=== PATIENT | male | born 1930 | race Caucasian/White ===

== ENCOUNTER → 2017-12-23 | Outpatient (CLI) | payer MEDICARE, MEDICAID ==
[2017-12-23 11:56] LABS: CHLORIDE 103 mEq/L (98-107)
[2017-12-23 12:09] LABS: TOTAL IRON BINDING CAPACITY 324 ug/dL (250-450)
[2017-12-23 12:23] LABS: FERRITIN 36 ng/mL (22-322)
[2017-12-23 12:36] LABS: VITAMIN B12 SERUM 568 pg/mL (211-911)
[2017-12-23 12:43] LABS: FOLIC ACID (FOLATE) SERUM > 20.00 ng/mL (>5.38)
[2017-12-24 06:20] LABS: PROSTATE SPECIFIC AG TOTAL 0.5 ng/mL (0.0-4.0); PSA FREE 0.28 ng/mL
== END | disposition home or self-care (01) ==
LOC: LAB 10:32
PROVIDERS: ATTEND Internal Medicine Nephrology
DX: R10.9 Unspecified abdominal pain (principal); I10 Essential (primary) hypertension; N40.0 Benign prostatic hyperplasia without lower urinary tract symptoms; R79.89 Other specified abnormal findings of blood chemistry
CPT/HCPCS: 36415; 80053; 82607; 82728; 82746; 83540; 83550; 84153; 84154

== ENCOUNTER → 2017-12-26 | Outpatient (CLI) | payer MEDICARE, MEDICAID ==
[2017-12-26 12:11] LABS: CLARITY URINE CLEAR (CLEAR); COLOR URINE DARK YELLOW (YELLOW); KETONES URINE TRACE (NEGATIVE); LEUKOCYTE ESTERASE URINE NEGATIVE (NEGATIVE); NITRITE URINE NEGATIVE (NEGATIVE); OCCULT BLOOD URINE NEGATIVE (NEGATIVE); PH URINE 5.5 (4.5-8.0); PROTEIN URINE NEGATIVE (NEGATIVE)
== END | disposition home or self-care (01) ==
LOC: LAB 10:49
PROVIDERS: ATTEND Internal Medicine Nephrology
DX: N39.0 Urinary tract infection, site not specified (principal); I10 Essential (primary) hypertension
CPT/HCPCS: 81003; 87086

== ENCOUNTER → 2018-08-13 | Outpatient (CLI) | payer MEDICARE, MEDICAID ==
[2018-08-13 10:15] LABS: CHLORIDE 100 mEq/L (98-107)
== END | disposition home or self-care (01) ==
LOC: LAB 09:32
PROVIDERS: ATTEND Internal Medicine Nephrology
DX: I12.9 Hypertensive chronic kidney disease with stage 1 through stage 4 chronic kidney disease, or unspecified chronic kidney disease (principal); N18.3 Chronic kidney disease, stage 3 (moderate); Z85.46 Personal history of malignant neoplasm of prostate
CPT/HCPCS: 36415; 80048; 84153; G0103

== ENCOUNTER → 2020-04-19 | Outpatient (CLI) | payer MEDICARE, MEDICAID ==
[~2020-04-19] MED LIST: AMLO2.5T45 PO; ASPI-1497 PO; BENA10TA74 PO; CARV6.2548 PO; CHOL200077 PO; CLOP75TA33 PO; DOXA1TAB2 PO; FINA1TAB18 PO; MAGN400C PO; MULT1TAB63 PO
== END | disposition home or self-care (01) ==
LOC: LAB 12:29
PROVIDERS: ATTEND Ophthalmology
DX: Z20.828 Contact with and (suspected) exposure to other viral communicable diseases (principal)
CPT/HCPCS: C9803; U0003

== ENCOUNTER 2020-04-24 06:19 | Day surgery (SDC) | payer MEDICARE, MEDICAID ==
[~2020-04-24] VITALS: Ht 160 cm; Wt 59.9 kg
[~2020-04-24 06:19] MED LIST changes: -AMLO2.5T45 PO; -ASPI-1497 PO; -BENA10TA74 PO; -CARV6.2548 PO; -CHOL200077 PO; -CLOP75TA33 PO; -DOXA1TAB2 PO; -FINA1TAB18 PO; -MAGN400C PO; -MULT1TAB63 PO; +NEOMYCIN/POLYMYXN B/GRAMICIDIN OPHTH DROPS 10ML RIGHTEYE SCH; +PHENYLEPHRINE 2.5% OPHTH 15 DROP/ML BOTTLE RIGHTEYE NR; +TROPICAMIDE 1% OPHTH DROPS 15ML RIGHTEYE NR
[2020-04-24] MEDS ORDERED: BENA10TA74 PO (06:42)
[2020-04-24] MEDS ORDERED: CLOP75TA33 PO (06:42)
[2020-04-24] MEDS ORDERED: ASPI-1497 PO (06:42)
[2020-04-24] MEDS ORDERED: AMLO2.5T45 PO (06:42)
[2020-04-24] MEDS ORDERED: MAGN400C PO (06:42)
[2020-04-24] MEDS ORDERED: MULT1TAB63 PO (06:42)
[2020-04-24] MEDS ORDERED: DOXA1TAB2 PO (06:42)
[2020-04-24] MEDS ORDERED: FINA1TAB18 PO (06:42)
[2020-04-24] MEDS ORDERED: CARV6.2548 PO (06:42)
[2020-04-24] MEDS ORDERED: ACETYLCHOLINE CHLORIDE INTRAOCULAR SOLUTION 1:100 ELECTROLYTE DILUENT IO ONE (07:00)
[2020-04-24] MEDS ORDERED: PREDNISOLONE ACETATE 1% OPHTH DROPS 5ML ONE (07:00)
[2020-04-24] MEDS ORDERED: PHENYLEPHRINE HCL 2.5% OPHTH DROPS 2ML ONE (07:00)
[2020-04-24] MEDS ORDERED: TROPICAMIDE 1% OPHTH DROPS 15ML ONE (07:00)
[2020-04-24] MEDS ORDERED: LACTATED RINGERS 1,000 ML IV SCH (07:00)
[2020-04-24] MEDS ORDERED: TETRACAINE 0.5% OPHTH DROPS 4ML ONE (07:00)
[2020-04-24] MEDS ORDERED: BALANCED SALT IRRIG SOLN 15ML ONE (07:00)
[2020-04-24 07:19] LABS: CHLORIDE 100 mEq/L (98-107)
[2020-04-24] MEDS ORDERED: HYALURONATE SODIUM 10 MG/ML 0.55ML SYRINGE IO ONE (07:22)
[2020-04-24] MEDS ORDERED: TOBRAMYCIN/DEXAMETH 0.1/0.3% OPHTH SUSP 2.5ML ONE (07:22)
[2020-04-24] MEDS ORDERED: HOMATROPINE HBR 5% OPHTH 5ML ONE (07:23)
[2020-04-24] MEDS ORDERED: METHYLPREDNISOLONE SOD SUCC 40 MG/ML VIAL ONE (07:23)
[2020-04-24 07:24] LABS: BASOPHILS % 0.3 % (0.0-2.0); EOSINOPHILS % 1.3 % (0.0-5.0); HEMATOCRIT. 35.1 % (42.0-52.0); LYMPHOCYTES % 25.7 % (20.0-50.0); MEAN CORPUSCULAR HEMOGLOBIN 32.8 pg (28.0-32.0); MEAN CORPUSCULAR VOLUME 96.1 fL (80.0-94.0); MEAN PLATELET VOLUME 7.6 fl (7.4-10.4); MONOCYTES % 14.4 % (2.0-8.0); NEUTROPHILS % 58.3 % (40.0-76.0); PLATELET 150 x1000/uL (130-400); RED BLOOD CELL COUNT 3.65 mill/uL (4.7-6.1); RED CELL DISTRIBUTION WIDTH 14.2 % (11.6-14.6)
[2020-04-24] MEDS ORDERED: BALANCED SALT IRRIG SOLN COMB1 500ML OP SCH (07:30)
[2020-04-24] MEDS ORDERED: LABETALOL 5MG/ML SYR 20 MG/4 ML SYRINGE IV PRN (08:00)
[2020-04-24] MEDS ORDERED: LIDOCAINE HCL 2%/EPINEPHRINE 1:100,000 20 ML VIAL INFIL ONE (08:00)
[2020-04-24] MEDS ORDERED: ONDANSETRON HCL 4MG/2ML INJ IV PRN (08:00)
[2020-04-24] MEDS ORDERED: MEPERIDINE HCL/PF 25MG/ML CPJ IV PRN (08:00)
[2020-04-24] MEDS ORDERED: BUPIVACAINE HCL/PF 0.75% (7.5MG/ML) 10ML ONE (08:00)
[2020-04-24] MEDS ORDERED: GENTAMICIN SULF 40MG/ML 2ML VIAL ONE (08:00)
[2020-04-24] MEDS ORDERED: HYDROMORPHONE HCL/PF 2MG/ML CPJ IV PRN (08:00)
[2020-04-24] MEDS ORDERED: BALANCED SALT IRRIG SOLN COMB2 500ML OP ONE (08:35)
[2020-04-24] MEDS ORDERED: CHOL200077 PO (09:23)
== END 2020-04-24 11:00 | disposition home or self-care (01) ==
LOC: OR 06:19
PROVIDERS: ATTEND Ophthalmology
DX: H26.8 Other specified cataract (principal); I10 Essential (primary) hypertension; E78.00 Pure hypercholesterolemia, unspecified; M19.90 Unspecified osteoarthritis, unspecified site; Z79.82 Long term (current) use of aspirin; Z79.899 Other long term (current) drug therapy; Z88.0 Allergy status to penicillin; Z98.890 Other specified postprocedural states
CPT/HCPCS: 36415; 66984; 67005; 80048; 85025; 93005; J1100; J1580; J2250; J2405; J2704; J2920; J3010; J3490; V2630